=== PATIENT | male | born 1975 | race Caucasian/White ===

== ENCOUNTER 2016-11-24 17:23 | Emergency (ER) | payer BC ==
[~2016-11-24] VITALS: Ht 188 cm; Wt 102.1 kg
[2016-11-24] MEDS ORDERED: ASPIRIN 325 MG TABLET PO ONE (18:00)
[2016-11-24] MEDS ORDERED: MORPHINE SULFATE INJ 2 MG/ML DISP.SYRIN IV ONE ×2 (18:00→19:00)
[2016-11-24] MEDS ORDERED: NITROGLYCERIN PACKET 1 GM PACKET TD ONE (18:00)
[2016-11-24] MEDS ORDERED: ONDANSETRON HCL/PF 4 MG/2 ML VIAL IVP ONE ×2 (18:00→19:00)
[2016-11-24] MEDS ORDERED: ASPIRIN 325 MG TABLET ONE (18:02)
[2016-11-24] MEDS ORDERED: ONDANSETRON HCL/PF 4 MG/2 ML VIAL ONE ×2 (18:02→18:59)
[2016-11-24] MEDS ORDERED: MORPHINE SULFATE INJ 4 MG/ML DISP.SYRIN ONE ×2 (18:02→18:59)
[2016-11-24] MEDS ORDERED: NITROGLYCERIN PACKET 1 GM PACKET ONE (18:03)
[2016-11-24 18:14] LABS: BASOPHILS # (AUTO) 0.1 /CMM (0.0-0.2); BASOPHILS % (AUTO) 0.8 % (0.0-2.0); DIFF TOTAL % 100 %; EOSINOPHILS # (AUTO) 0.1 /CMM (0.0-0.7); EOSINOPHILS % (AUTO) 1.4 % (0.0-6.0); HEMATOCRIT 50 % (39-51); HEMOGLOBIN 16.6 g/dL (13.5-17.5); LYMPHOCYTES # (AUTO) 1.6 /CMM (0.8-4.8); LYMPHOCYTES % (AUTO) 18.5 % (20.0-44.0); MEAN CORPUSCULAR HEMOGLOBIN 29 PG (26.0-33.0); MEAN CORPUSCULAR HGB CONC 33 g/dl (31.0-36.0); MEAN CORPUSCULAR VOLUME 87 fL (80-96); MONOCYTES # (AUTO) 0.9 /CMM (0.1-1.30); MONOCYTES % (AUTO) 10.6 % (2.0-12.0); NEUTROPHILS # (AUTO) 5.9 /CMM (1.8-8.9); NEUTROPHILS % (AUTO) 68.7 % (43.0-81.0); PLATELET COUNT (AUTO) 232 /CMM (150-450); RED BLOOD CELL COUNT(AUTO) 5.76 MIL/uL (4.5-6.0); WHITE BLOOD COUNT (AUTO) 8.6 K/uL (4.3-11.0)
[2016-11-24] MEDS ORDERED: METH10TA16 PO (18:17)
[2016-11-24] MEDS ORDERED: BACL10TA PO (18:17)
[2016-11-24 18:24] LABS: ANION GAP 10 (5-14); CARBON DIOXIDE 30 mmol/L (21-32); CHLORIDE 104 mmol/L (98-107); CREATININE 0.9 mg/dL (0.6-1.3); GFR 93 mL/min (>60); GLUCOSE 83 mg/dL (74-106); POTASSIUM 4.1 mmol/L (3.5-5.1); SODIUM SERUM 140 mmol/L (136-145); UREA NITROGEN, BLOOD 10 mg/dL (7-18)
[2016-11-24 18:28] LABS: INR 1.05 (0.87-1.13)
[2016-11-24 18:33] LABS: TROPONIN I < 0.017 ng/mL (0.00-0.056)
[2016-11-24 18:43] LABS: CALCIUM, SERUM 9.5 mg/dL (8.5-10.1)
[2016-11-24] MEDS ORDERED: RITU10VI IV (18:50)
[2016-11-24] MEDS ORDERED: METOPROLOL TARTRATE INJ 5 MG/5 ML AMPUL ONE (18:58)
[2016-11-24] MEDS ORDERED: METOPROLOL TARTRATE INJ 5 MG/5 ML AMPUL IVP ONE (19:00)
[2016-11-24] MEDS ORDERED: hydrALAZINE HCL IV 20 MG VIAL IV ONE (20:00)
[2016-11-24] MEDS ORDERED: hydrALAZINE HCL IV 20 MG VIAL ONE (20:14)
[2016-11-24 21:37] VITALS: BP 139/90
== END 2016-11-24 21:38 | disposition home or self-care (01) ==
LOC: ER 17:28
DX: R07.89 Other chest pain (principal); G35 Multiple sclerosis; I16.0 Hypertensive urgency; I10 Essential (primary) hypertension
CPT/HCPCS: 36415; 71010; 80048; 84484 ×2; 85025; 85730; 93005 ×2; 96374; 96375; 96376 ×2; 99285; A4606; J0360; J2270 ×2; J2405 ×2; J3490; Z7610